=== PATIENT | female | born 1965 | race Two or more races ===

== ENCOUNTER 2019-02-01 13:23 | Outpatient (CLI) | payer OTHER | END 2019-02-01 13:30 | disposition home or self-care (01) | LOC: EDBD 13:23 → SONOGRAMA 13:23 | DX: N60.11 Diffuse cystic mastopathy of right breast (principal); N60.12 Diffuse cystic mastopathy of left breast ==

== ENCOUNTER 2019-10-11 09:50 | Outpatient (CLI) | payer OTHER | END 2019-10-11 09:52 | disposition home or self-care (01) | LOC: SONOGRAMA 09:50 | PROVIDERS: ATTEND Pathology Anatomic Pathology & Clinical Pathology | DX: E04.2 Nontoxic multinodular goiter (principal) ==

== ENCOUNTER 2020-01-14 07:17 | Outpatient (CLI) | payer OTHER | END 2020-01-14 07:40 | disposition home or self-care (01) | LOC: NUCLEAR 07:17 | DX: R07.89 Other chest pain (principal) | CPT/HCPCS: 78452; 93017; J1250; A9500 ==